=== PATIENT | male | born 1945 | race Caucasian/White ===

== ENCOUNTER 2023-04-05 11:34 | Day surgery (SDC) | payer OTHER ==
[2023-04-02 15:48] VITALS: BMI 26.6
[2023-04-05] MEDS ORDERED: PROPOFOL 20 ML ONE (12:52)
== END 2023-04-05 14:15 | disposition home or self-care (01) ==
LOC: CSHSDC 11:34
PROVIDERS: ATTEND Internal Medicine Gastroenterology
PROC: 0DBM8ZZ Excision of Descending Colon, Via Natural or Artificial Opening Endoscopic (ICD-10-PCS; principal; 2023-04-05)
DX: Z12.11 Encounter for screening for malignant neoplasm of colon (principal); K63.5 Polyp of colon; K57.30 Diverticulosis of large intestine without perforation or abscess without bleeding; I25.10 Atherosclerotic heart disease of native coronary artery without angina pectoris; Z86.010 Personal history of colon polyps; Z80.0 Family history of malignant neoplasm of digestive organs; Z88.8 Allergy status to other drugs, medicaments and biological substances
CPT/HCPCS: 88305; J2704